=== PATIENT | female | born 1990 | race Caucasian/White ===

== ENCOUNTER 2017-07-02 08:17 | Emergency (ER) | payer BC ==
[2017-07-02] MEDS ORDERED: NS 0.9% 1000 ML* 1,000 ML IV ONE (08:46)
--- NOTE | 2017-07-02 09:10 | RAD ---
HISTORY: Abdominal pain and cramping COMPARISONS: None VIEWS: Frontal supine and upright views of the abdomen. FINDINGS: BOWEL: There is a nonobstructive bowel gas pattern. There is a large amount of stool within the colon. CALCULI: There are no abnormal calculi. BONES AND SOFT TISSUES: There are no osseous abnormalities. OTHER FINDINGS: The lung bases are clear. There is no subphrenic gas. An IUD is noted. IMPRESSION: NONOBSTRUCTIVE BOWEL GAS PATTERN. LARGE AMOUNT OF STOOL THROUGHOUT THE COLON.
[2017-07-02 09:23] LABS: ABS Basophils 0 10^3/ul (0-0.2); ABS Eosinophils 0.1 10^3/ul (0-0.6); ABS Lymphocytes 1.2 10^3/ul (1.0-4.8); ABS Monocytes 0.6 10^3/ul (0-0.8); ABS Neutrophils 8.8 10^3/ul (1.5-7.7); ABS Nucleated RBC 0 10^3/ul; Hematocrit 43 % (35-47); Hemoglobin 14.5 g/dl (12.0-16.0); Lymphocyte % 11.3 % (25-47); Mean Corpuscular HGB Conc 34 g/dl (31-36); Mean Corpuscular Hemoglobin 32 pg (27-31); Mean Corpuscular Volume 95 fL (80-97); Nucleated Red Blood Cells % 0; Platelet Count 272 10^3/ul (150-450); Red Blood Count 4.57 10^6/ul (4.0-5.4); Red Cell Distribution Width 13 % (10.5-15); White Blood Count 10.8 10^3/ul (3.5-10.8)
[2017-07-02 09:52] LABS: EGFR Non-African American 97.9 (>60)
[2017-07-02] MEDS ORDERED: Polyethylene Glycol 3350* 17 GM PACKET PO PRN (09:59)
[2017-07-02] MEDS ORDERED: Magnesium CITRATE* 300 ML BTL PO ONE (09:59)
[2017-07-02] MEDS ORDERED: Polyethylene Glycol 3350* 17 GM PACKET ONE (10:03)
[2017-07-02 10:10] VITALS: BP 111/64
--- NOTE | 2017-07-03 08:01 | ED ---
Jemal Foster Angela, scribed for Garfield Conrad MD on 07/02/17 at 0844 . Abdominal Pain/Female - HPI Summary HPI Summary: This pt is a 27 y/o female presenting to [facility] c/o abdominal pain since this morning. Pt reports that this morning she went to the bathroom became dizzy and had 1 episode of emesis. She describes emesis as "just water." Currently pt states her pain has subsided. She notes she feels constipated, her last bowel movement was yesterday morning. Denies headache, sore throat and diarrhea. LMP: 2 months ago (reports she is not regular as she has an IUD in place). Pt states she had 3 glasses of wine yesterday, she notes she usually drinks alcohol every day. - History of Current Complaint Chief Complaint: EDAbdPain Stated Complaint: ABD CRAMPING Time Seen by Provider: 07/02/17 08:35 Hx Obtained From: Patient Onset/Duration: Sudden Onset, Resolved Timing: Hours Severity Currently: Mild Pain Intensity: 2 Pain Scale Used: 0-10 Numeric Location: Diffuse Radiates: No Character: Cramping Aggravating Factor(s): Nothing Alleviating Factor(s): Nothing Associated Signs and Symptoms: Positive: Constipation - pt feels constipated, Vomiting - 1 episode, Other: - NEG: headache, sore throat. Negative: Fever, Diarrhea Allergies/Adverse Reactions: Allergies Allergy/AdvReac Type Severity Reaction Status Date / Time No Known Allergies Allergy Verified 07/02/17 08:22 Home Medications: Home Medications NK [No Home Medications Reported] 07/02/17 [History Confirmed 07/02/17] PMH/Surg Hx/FS Hx/Imm Hx Endocrine/Hematology History: Denies: Hx Diabetes Cardiovascular History: Denies: Hx Hypertension Infectious Disease History: No Infectious Disease History: Denies: Traveled Outside the [place] in Last 30 Days - Family History Known Family History: Negative: Cardiac Disease, Hypertension, Diabetes - Social History Alcohol Use: Daily Substance Use Type: Reports: None Smoking Status (MU): Never Smoked Tobacco Review of Systems Negative: Fever Negative: Sore Throat Gastrointestinal: Other - constipation Positive: Abdominal Pain, Vomiting. Negative: Diarrhea Neurological: Other - POS: dizziness Negative: Headache All Other Systems Reviewed And Are Negative: Yes Physical Exam - Summary Physical Exam Summary: VITAL SIGNS: Reviewed. GENERAL: Patient is a well-developed and nourished female who is lying comfortable in the stretcher. Patient is not in any acute respiratory distress. HEAD AND FACE: Normocephalic and atraumatic. Pt has alcohol breath. EYES: PERRLA, EOMI x 2, No injected conjunctiva. EARS: Hearing grossly intact. Ear canals and tympanic membranes are WNL. MOUTH: Oropharynx within normal limits. NECK: Supple, trachea is midline, no adenopathy, no JVD. CHEST: Symmetric, no tenderness at palpation LUNGS: Clear to auscultation bilaterally. No wheezing or crackles. CVS: RRR, S1 and S2 present, no murmurs or gallops appreciated. ABDOMEN: Soft, non-tender. No signs of distention. Positive bowel sounds. No rebound no guarding, and no masses palpated. No abdominal bruit or pulsations. EXTREMITIES: FROM in all major joints, no edema, no cyanosis or clubbing. NEURO: Alert and oriented x 3. No acute neurological deficits. Speech is normal. SKIN: Dry and warm Triage Information Reviewed: Yes Vital Signs On Initial Exam: Initial Vitals Temp Pulse Resp BP Pulse Ox 97.5 F 63 15 109/70 94 07/02/17 08:23 07/02/17 08:23 07/02/17 08:23 07/02/17 08:23 07/02/17 08:23 Vital Signs Reviewed: Yes Diagnostics - Vital Signs Vital Signs Temp Pulse Resp BP Pulse Ox 07/02/17 08:38 112 142/82 98 07/02/17 08:23 97.5 F 63 15 109/70 94 - Laboratory Result Diagrams: 07/02/17 09:00 07/02/17 09:00 Lab Statement: Any lab studies that have been ordered have been reviewed, and results considered in the medical decision making process. - Radiology Abdomen XR Xray Interpretation: Positive (See Comments) - IMPRESSION: Nonobstructive bowel gas pattern. Large amount of stool throughout the colon. Dr. Conrad has reviewed this radiology report. Radiology Interpretation Completed By: Radiologist - EKG 09:07 Cardiac Rate: NL EKG Rhythm: Sinus Rhythm - at 86 bpm EKG Interpretation: No ST elevations. Normal axis. Re-Evaluation - Re-Evaluation First Eval Re-Evaluation Time: 10:01 Comment: I reviewed the lab and XR results with the pt. Pt will be discharged home. Abdominal Pain Fem Course/Dx - Course Course Of Treatment: This pt is a 27 y/o female presenting to [facility] c/o abdominal pain since this morning. Pt reports that this morning she went to the bathroom became dizzy and has 1 episode of emesis. Currently pt states her pain has subsided. She notes she feels constipated, her last bowel movement was yesterday morning. Denies headache, sore throat and diarrhea. LMP: 2 months ago (reports she is not regular as she has an IUD in place). Pt states she had 3 glasses of wine yesterday, she notes she usually drinks alcohol every day. Test results without any significant abnormalities. Abdomen XR shows nonobstructive bowel gas pattern. Large amount of stool throughout the colon. In the ED course the pt was given IV fluids, lactulose, magnesium citrate, and Miralax. Pt is tolerating PO without nausea or vomiting. Therefore she will be discharged to home with follow up from her PCP. I discussed all the findings and test results with the patient. All questions were answered to patient satisfaction. There were no further complaints or concerns. She is instructed to return to the ED for any worsening or new symptoms. Pt is hemodynamically stable, alert and oriented x3. - Diagnoses Provider Diagnoses: Constipation, Abdominal pain Discharge - Sign-Out/Discharge Documenting (check all that apply): Discharge - discharge to home - Discharge Plan Condition: Stable Disposition: HOME Patient Education Materials: Constipation (ED), Abdominal Pain (ED) Referrals: [facility] [Outside] - 3 Days No Primary Care Phys,NOPCP [Primary Care Provider] - Additional Instructions: Please establish a primary care provider and follow up with your primary. RETURN TO THE ED FOR ANY NEW OR WORSENING SYMPTOMS. The documentation as recorded by the Jemal sierra Angela accurately reflects the service I personally performed and the decisions made by me, Garfield Conrad MD.
== END 2017-07-02 10:10 | disposition home or self-care (01) ==
LOC: ED 08:17
DX: K59.00 Constipation, unspecified (principal); R10.84 Generalized abdominal pain; R42 Dizziness and giddiness; Z97.5 Presence of (intrauterine) contraceptive device; Z32.02 Encounter for pregnancy test, result negative
CPT/HCPCS: 36415; 74019; 80053; 83690; 84702; 85025; 86140; 93005; 96360; 99282; A9270-GY